=== PATIENT | female | born 1990 | race Caucasian/White ===

== ENCOUNTER 2017-06-22 21:55 | Emergency (ER) | payer SELFPAY, OTHER ==
[2017-06-22] MEDS: ONDANSETRON (ODT) 4 MG TAB ODT (23:58)
[2017-06-22] MEDS: IBUPROFEN 600 MG TAB PO (23:59)
[2017-06-22] MEDS: ACETAMINOPHEN 325 MG TAB PO (23:59)
== END 2017-06-23 00:13 | disposition home or self-care (01) ==
LOC: FTE 06-23 00:13
DX: H66.91 Otitis media, unspecified, right ear (principal); J00 Acute nasopharyngitis [common cold]; R11.10 Vomiting, unspecified
CPT/HCPCS: 99284